=== PATIENT | male | born 1975 | race Caucasian/White ===

== ENCOUNTER 2016-10-02 02:42 | Emergency (ER) | payer BC ==
[2016-10-02] MEDS ORDERED: MORPHINE SULFATE 2 MG/ML SYRINGE IVP STA (02:56)
[2016-10-02] MEDS ORDERED: ONDANSETRON 4 MG/2 ML VIAL IVP STA (02:56)
[2016-10-02] MEDS ORDERED: SODIUM CHLORIDE 0.9% 1,000 ML IV STA (02:56)
[2016-10-02] MEDS ORDERED: KETOROLAC 30 MG/ML 1 ML VIAL IVP STA (02:56)
--- NOTE | 2016-10-02 03:04 | ED ---
General Adult HPI - General Chief complaint: Abdominal Pain Stated complaint: back pain Time Seen by Provider: 10/02/16 02:56 Source: patient, family, RN notes reviewed Mode of arrival: ambulatory Limitations: no limitations - History of Present Illness Initial comments: Patient is a 41-year-old male with a history of kidney stones presenting to the emergency department with acute onset of left flank pain. Patient reports this started to occur around 11:30 tonight. He reports that he has had a kidney stone become lodged in his urethra in the past and has had surgery to have it removed. He reports that he's had a few episodes of vomiting and the pain is very severe. He states it's only on the left side and radiates towards his groin. He reports that prior to 11:00 he was feeling fine and went to bed. Patient reports that he's had no fever or chills. He denies any specific abdominal pain, chest pain, shortness of breath. Patient reports that he has seen Dr. Wright, the urologist in the past. - Related Data Previous Rx's Medication Instructions Recorded HYDROcodone/APAP 10-325MG [Cook 1 tab PO Q6H PRN #15 tab 10/02/16 10-325] Ketorolac [Toradol] 10 mg PO Q6HR #15 tab 10/02/16 Ondansetron Odt [Zofran Odt] 4 mg PO Q8HR PRN #12 tab 10/02/16 Tamsulosin [Flomax] 0.4 mg PO DAILY #5 cap 10/02/16 Allergies Allergy/AdvReac Type Severity Reaction Status Date / Time No Known Allergies Allergy Verified 10/02/16 02:51 Review of Systems ROS Statement: Those systems with pertinent positive or pertinent negative responses have been documented in the HPI. ROS Other: All systems not noted in ROS Statement are negative. Past Medical History Additional Past Medical History / Comment(s): kidney stones History of Any Multi-Drug Resistant Organisms: None Reported Past Surgical History: Orthopedic Surgery Additional Past Surgical History / Comment(s): hand surgery Past Psychological History: No Psychological Hx Reported Smoking Status: Current some day smoker Past Alcohol Use History: None Reported Past Drug Use History: None Reported General Exam - General Exam Comments Initial Comments: Patient is a ill-appearing 41-year-old male. Patient does appear to be in significant amount of discomfort. Limitations: no limitations General appearance: alert, in no apparent distress Head exam: Present: atraumatic, normocephalic, normal inspection Eye exam: Present: normal appearance, PERRL, EOMI. Absent: scleral icterus, conjunctival injection, periorbital swelling ENT exam: Present: normal exam, normal oropharynx, mucous membranes moist Neck exam: Present: normal inspection. Absent: tenderness, meningismus, lymphadenopathy Respiratory exam: Present: normal lung sounds bilaterally. Absent: respiratory distress, wheezes, rales, rhonchi, stridor Cardiovascular Exam: Present: regular rate, normal rhythm, normal heart sounds. Absent: systolic murmur, diastolic murmur, rubs, gallop, clicks GI/Abdominal exam: Present: soft, normal bowel sounds. Absent: distended, tenderness, guarding, rebound, rigid Extremities exam: Present: normal inspection, full ROM, normal capillary refill. Absent: tenderness, pedal edema, joint swelling, calf tenderness Back exam: Present: normal inspection, CVA tenderness (L) (Patient has significant left CVA tenderness.). Absent: full ROM, tenderness, CVA tenderness (R), muscle spasm, paraspinal tenderness, vertebral tenderness, rash noted Neurological exam: Present: alert, oriented X3, CN II-XII intact Psychiatric exam: Present: normal affect, normal mood Skin exam: Present: warm, dry, intact, normal color. Absent: rash Course Vital Signs 10/02/16 02:49 Temperature 97.3 F L Pulse Rate 87 Respiratory 20 Rate Blood Pressure 151/104 O2 Sat by Pulse 97 Oximetry Medical Decision Making - Medical Decision Making Patient is a 41-year-old male with a history of kidney stones presenting to the emergency department with acute onset of left flank pain. Patient reports this started to occur around 11:30 tonight. Patient's lab work was reviewed. Urinalysis is negative for any acute process at this time. Given patient's onset of symptoms. Kidney stones a CT abdomen and pelvis without contrast was obtained. There is evidence of a 3 mm left UVJ stone causing mild left-sided hydroureter nephrosis. will be given a prescription for Flomax, Toradol, and Cook and Zofran. Patient will be advised to follow up with urology Dr. Wright. Patient understands the treatment plan will comply. Return parameters were discussed. - Lab Data Result diagrams: 10/02/16 03:11 10/02/16 03:11 Lab Results 10/02/16 10/02/16 10/02/16 Range/Units 03:11 03:11 03:31 WBC 7.5 (3.8-10.6) k/uL RBC 5.29 (4.30-5.90) m/uL Hgb 15.6 (13.0-17.5) gm/dL Hct 46.8 (39.0-53.0) % MCV 88.4 (80.0-100.0) fL MCH 29.5 (25.0-35.0) pg MCHC 33.4 (31.0-37.0) g/dL RDW 12.9 (11.5-15.5) % Plt Count 234 (150-450) k/uL Neutrophils % 62 % Lymphocytes % 26 % Monocytes % 6 % Eosinophils % 2 % Basophils % 1 % Neutrophils # 4.7 (1.3-7.7) k/uL Lymphocytes # 2.0 (1.0-4.8) k/uL Monocytes # 0.5 (0-1.0) k/uL Eosinophils # 0.1 (0-0.7) k/uL Basophils # 0.1 (0-0.2) k/uL Sodium 144 (137-145) mmol/L Potassium 4.3 (3.5-5.1) mmol/L Chloride 105 (98-107) mmol/L Carbon Dioxide 26 (22-30) mmol/L Anion Gap 13 mmol/L BUN 15 (9-20) mg/dL Creatinine 1.20 (0.66-1.25) mg/dL Est GFR (MDRD) Af Amer >60 (>60 ml/min/1.73 sqM) Est GFR (MDRD) Non-Af >60 (>60 ml/min/1.73 sqM) Glucose 140 H (74-99) mg/dL Calcium 9.6 (8.4-10.2) mg/dL Total Bilirubin 0.6 (0.2-1.3) mg/dL AST 30 (17-59) U/L ALT 56 (21-72) U/L Alkaline Phosphatase 52 (38-126) U/L Total Protein 7.4 (6.3-8.2) g/dL Albumin 4.6 (3.5-5.0) g/dL Amylase 51 (30-110) U/L Lipase 106 (23-300) U/L Urine Color Yellow Urine Appearance Clear (Clear) Urine pH 5.5 (5.0-8.0) Ur Specific [place] 1.020 (1.001-1.035) Urine Protein Trace H (Negative) Urine Glucose (UA) Negative (Negative) Urine Ketones Negative (Negative) Urine Blood Negative (Negative) Urine Nitrate Negative (Negative) Urine Bilirubin Negative (Negative) Urine Urobilinogen <2.0 (<2.0) mg/dL Ur Leukocyte Esterase Negative (Negative) Interpretation: no acute changes - Radiology Data Radiology results: report reviewed K[facility] x-ray was negative for any acute process. CT abdomen and pelvis without contrast was completed. There is a 3 mm obstructing left UVJ stone causing mild left-sided hydronephrosis. This was read by Dr. Leonardo Disposition Clinical Impression: Left ureteral stone Disposition: HOME SELF-CARE Condition: Good Instructions: Ureteral Stones (ED) Additional Instructions: Patient advised to take prescriptions as directed. Follow-up with urology as directed. Patient advised to try to collect stone. Return to the emergency department if any alarming signs or symptoms occur. Prescriptions: HYDROcodone/APAP 10-325MG [Cook 10-325] 1 tab PO Q6H PRN #15 tab PRN Reason: Pain Ketorolac [Toradol] 10 mg PO Q6HR #15 tab Ondansetron Odt [Zofran Odt] 4 mg PO Q8HR PRN #12 tab PRN Reason: Nausea Tamsulosin [Flomax] 0.4 mg PO DAILY #5 cap Referrals: Jose Flores DO [Primary Care Provider] - 1-2 days Moi Diaz MD [STAFF PHYSICIAN] - 1-2 days Time of Disposition: 04:21
[2016-10-02 03:34] LABS: Basophils # (A) 0.1 k/uL (0-0.2); Basophils % (A) 1 %; CH 30.8; Eosinophils # (A) 0.1 k/uL (0-0.7); Eosinophils % (A) 2 %; HCT 46.8 % (39.0-53.0); HGB 15.6 gm/dL (13.0-17.5); Luc # (Auto) 0.22; Luc % (Auto) 3; Lymphocytes % (A) 26 %; MCH 29.5 pg (25.0-35.0); MCHC 33.4 g/dL (31.0-37.0); MCV 88.4 fL (80.0-100.0); Mean Platelet Volume 8.3; Monocytes # (A) 0.5 k/uL (0-1.0); Monocytes % (A) 6 %; Neutrophils # (A) 4.7 k/uL (1.3-7.7); Neutrophils % (A) 62 %; RBC 5.29 m/uL (4.30-5.90); RDW 12.9 % (11.5-15.5); WBC 7.5 k/uL (3.8-10.6); WBC (Perox) 7.24
--- NOTE | 2016-10-02 03:34 | XR ---
INDICATION: Abdominal pain COMPARISON: Abdominal x-ray 12/17/14 FINDINGS: Single frontal view of the abdomen demonstrates a nonobstructive bowel gas pattern. There is gas and stool throughout the colon. No abnormally dilated loops of bowel are directly visualized. No abnormal calcifications are seen. Regional skeleton is intact. IMPRESSION: Nonobstructive bowel gas pattern.
[2016-10-02 03:41] LABS: Appearance,Urine Clear (Clear); Bilirubin,Urine Negative (Negative); Glucose,Urine (UA) Negative (Negative); Ketones,Urine Negative (Negative); Leukocyte Esterase,Urine Negative (Negative); Nitrite,Urine Negative (Negative); PH, Urine 5.5 (5.0-8.0); Protein,Urine Trace (Negative); UA Billing (MACRO vs. MICRO) CHEM; Urobilinogen,Urine <2.0 mg/dL (<2.0)
[2016-10-02 03:43] LABS: ALT 56 U/L (21-72); AST 30 U/L (17-59); Alkaline Phosphatase 52 U/L (38-126); Amylase 51 U/L (30-110); Anion Gap 13 mmol/L; Blood Urea Nitrogen 15 mg/dL (9-20); Calcium 9.6 mg/dL (8.4-10.2); Carbon Dioxide 26 mmol/L (22-30); Chloride 105 mmol/L (98-107); Glucose 140 mg/dL (74-99); Non-African American GFR(MDRD) >60 (>60 ml/min/1.73 sqM); Potassium 4.3 mmol/L (3.5-5.1); Sodium 144 mmol/L (137-145); Total Bilirubin 0.6 mg/dL (0.2-1.3); Total Protein 7.4 g/dL (6.3-8.2)
--- NOTE | 2016-10-02 04:08 | CT ---
INDICATION: Abdominal pain TECHNIQUE: CT acquisition was performed through the abdomen and pelvis. No IV contrast was given. Sagittal and coronal reformatted images were obtained. Total DLP 425.50 mGy-cm; CTDIvol 890 mGy. COMPARISON: CT abdomen and pelvis 12/17/14 FINDINGS: The lung bases are clear. The liver, gallbladder, spleen, pancreas, and adrenal glands demonstrate normal unenhanced appearance. There is a punctate nonobstructing stone in the midpole of the right kidney. The right collecting system is normal. There is an obstructing 3 mm stone at the left ureterovesicular junction causing mild left-sided hydroureteronephrosis and trace perinephric stranding. Aorta and IVC are normal. No evidence of small or large bowel obstruction. Visualized appendix normal. Urinary bladder and prostate unremarkable. No acute osseous findings. IMPRESSION: 1. 3 mm obstructing left UVJ stone causing mild left-sided hydroureteronephrosis.
[2016-10-02] MEDS ORDERED: TAMSULOSIN 0.4 MG CAP.ER.24H PO STA (04:16)
[2016-10-02] MEDS ORDERED: ONDANSETRON 4 MG ODT STARTER PACK 2 TAB BTL PO STA (04:17)
[2016-10-02] MEDS ORDERED: ACET/COD 300 MG/30 MG STARTER PACK 6 TAB BTL PO STA (04:17)
[2016-10-02] MEDS ORDERED: HYDROmorphone 1 MG/ML 1 ML SYRINGE IVP STA (04:17)
[2016-10-02 04:36] VITALS: BP 145/89; PULSE 75; RESP 15; TEMP 96.9
== END 2016-10-02 04:34 | disposition home or self-care (01) ==
LOC: EC 02:42
DX: N13.2 Hydronephrosis with renal and ureteral calculous obstruction (principal); F17.200 Nicotine dependence, unspecified, uncomplicated
CPT/HCPCS: 36415; 80053; 82150; 83690; 85025; 81003; 74000; 74176; 99284; 96374; 96375 ×3; 96361; J2405; J1885; J2270; J1170; S0119

== ENCOUNTER → 2020-11-07 | Outpatient (CLI) | payer BC ==
[2020-11-07 15:21] LABS: Appearance,Urine Clear (Clear); Bilirubin,Urine Negative (Negative); Blood,Urine Negative (Negative); Color,Urine Yellow; Glucose,Urine (UA) Negative (Negative); Ketones,Urine Negative (Negative); Leukocyte Esterase,Urine Negative (Negative); Nitrite,Urine Negative (Negative); PH, Urine 5.5 (5.0-8.0); Protein,Urine Negative (Negative); Specific Gravity,Urine 1.023 (1.001-1.035); Urobilinogen,Urine <2.0 mg/dL (<2.0)
[2020-11-07 22:54] LABS: Basophils # (A) 0.02 X 10*3/uL (0.00-0.10); Basophils % (A) 0.4 %; Eosinophils # (A) 0.13 X 10*3/uL (0.04-0.35); Eosinophils % (A) 2.5 %; HGB 15.9 g/dL (13.0-17.0); Lymphocytes # (A) 1.44 X 10*3/uL (0.90-5.00); Lymphocytes % (A) 27.2 %; MCH 29.9 pg (27.0-32.0); MCHC 33.8 g/dL (32.0-37.0); MCV 88.3 fL (80.0-97.0); Mean Platelet Volume 11.3 fL (9.5-12.2); Monocytes # (A) 0.54 X 10*3/uL (0.20-1.00); Monocytes % (A) 10.2 %; Neutrophils # (A) 3.15 X 10*3/uL (1.80-7.70); Neutrophils % (A) 59.5 %; Platelet Count 247 X 10*3/uL (140-440); RBC 5.32 X 10*6/uL (4.40-5.60); RDW 12.4 % (11.5-14.5); WBC 5.29 X 10*3/uL (4.50-10.00)
[2020-11-08 03:33] LABS: Hemoglobin A1C 5.5 % (4.0-6.0)
[2020-11-08 20:02] LABS: African American GFR (CKD) 92.2 (60.0-200.0); Albumin 4.6 g/dL (3.80-4.90); Albumin/Globulin Ratio 2.3 (1.60-3.17); Anion Gap 13.6 mmol/L (4.00-12.00); BUN/Creat Ratio 11.82 Ratio (12.00-20.00); Calcium 9.6 mg/dL (8.7-10.3); Carbon Dioxide 20.4 mmol/L (21.6-31.8); Chol/HDL Ratio 5.6; LDL Cholesterol,Calculated 112.6 mg/dL (0.0-131.0); Non-African American GFR(CKD) 79.5 (60.0-200.0); Potassium 4.8 mmol/L (3.5-5.5); Total Bilirubin 0.5 mg/dL (0.3-1.2); Total Protein 6.6 g/dL (6.2-8.2); VLDL Calculation 71.4 mg/dL (5.00-40.00)
== END | disposition home or self-care (01) ==
LOC: LABWHC1 14:19
PROVIDERS: ATTEND Family Medicine
DX: Z00.00 Encounter for general adult medical examination without abnormal findings (principal)
CPT/HCPCS: 36415; 80053; 80061; 81003; 83036; 84403; 84443; 85025

== ENCOUNTER 2024-03-10 21:08 | Inpatient (IN) | payer BC ==
[~2024-03-10 21:08] MED LIST: ASPIRIN 325 MG TAB ONE; NICOTINE 21MG/24HR PATCH TRANSDERM ONE
[2024-03-10] MEDS ORDERED: LOSARTAN 50 MG TAB ONE (21:24)
[2024-03-11] MEDS ORDERED: ACETAMINOPHEN TAB 325 MG TAB ONE (10:29)
[2024-03-11] MEDS ORDERED: ASPIRIN 81 MG ONE (10:29)
[2024-03-11] MEDS ORDERED: ATORVASTATIN 40 MG TAB ONE (10:29)
[2024-03-11] MEDS ORDERED: NICOTINE 21MG/24HR PATCH TRANSDERM ONE (10:29)
--- NOTE | 2024-03-30 13:01 | CT ---
Patient: Clint Chan Ordering Physician: Unknown, Unknown ID: [id number] Phone, Pager: Phone: N/ A Pager: N/A : 1975 Age/Gender: 49Y, M Primary Location: N/A Procedure: BRAIN HELICAL STANDAR D EXAMINATION TYPE: CT brain wo con DATE OF EXAM: 03/10/2024 COMPARISON: None INDICATION: Hypertension DLP: 1111.4 mGycm, Automated exposure control for dose reduction was used. CONTRAST: None CT of the brain is performed utilizing 3 mm thick sections through the posterior fossa and 3 mm thick sections through the remaining calvarium. Study is performed within 24 hours of arrival to the hosp [facility]. No abnormal hyperdensity is present to suggest an acute intracranial hemorrhage. No mass lesion is evident. The axial plane anatomy. 2.1 cm area of slightly diminished density within the right parietal occipit al lobe. This appears more linear in the coronal plane. Diminished density within the posterior brain can be associated with hypertensive findings. Subcortical ischemia could also be considered. Finding is very subtle and artifact is within the differential. Recommend additional workup with noncontrast MRI brain. Ventricles and sulci are appropriate for the patient age. Paranasal sinuses and mastoid air cells within the [id number] are clear. IMPRESSION: 1. Subtle hypodensity within the right parietal-occipital region. Hypertensive changes, early ische james and artifact are within the differential. Recommend MRI without contrast for additional evaluatio n.
--- NOTE | 2024-03-30 13:02 | CT ---
ChanClint ID: [id number] : 1975 EXAMINATION TYPE: CTA head neck DATE OF EXAM: 03/10/2024 COMPARISON: CT brain same day HISTORY: 49-year-old male hypertension TECHNIQUE: Contiguous axial scanning of the head and neck performed with IV Contrast, patient injecte d with 100 mL of Isovue 370. Coronal and sagittal reconstructions performed. 3-D reconstructions gene rated on a dedicated independent workstation. CT DLP: 437 mGycm Automated exposure control for dose reduction was used. FINDINGS: Neck: Mild emphysematous change in the visualized upper lungs. Slightly dominant right vertebral artery. Both vertebral arteries are otherwise patent throughout the ir course. The bilateral common and internal carotid arteries are widely patent by NASCET criteria. Moderate hypertrophy of the bilateral palatine tonsils. Brain: The V4 segment left vertebral artery becomes slightly more hypoplastic. Otherwise, both vertebral and basilar arteries are patent. On the right, there is a prominent contribution from the posterior communicating artery to supply the posterior cerebral artery. The remainder of the posterior circulation is patent. Bilateral internal carotid arteries as well as the remainder of the anterior circulation appear paten t. No aneurysmal change is identified. IMPRESSION: 1. NECK: WIDELY PATENT VERTEBRAL AND CAROTID ARTERIES OF THE NECK. SLIGHTLY DOMINANT RIGHT VERTEBRAL ARTERY. EMPHYSEMATOUS CHANGE IN THE VISUALIZED UPPER LUNGS. 2. HEAD: NO LARGE VESSEL INTRACRANIAL ARTERIAL OCCLUSION, SIGNIFICANT STENOSIS, OR ANEURYSMAL CHANGE IS SEEN.
== END 2024-03-11 14:17 | disposition home or self-care (01) | DRG 305 ==
LOC: OR 21:08 → 6NMEDSUR 21:09
PROVIDERS: ADMIT Internal Medicine; ATTEND Internal Medicine
DX: I16.0 Hypertensive urgency (principal); I10 Essential (primary) hypertension; F17.210 Nicotine dependence, cigarettes, uncomplicated; Z63.5 Disruption of family by separation and divorce; Z79.899 Other long term (current) drug therapy
CPT/HCPCS: 70450; 70496; 70498; 80061; 83036; 93005; 99285